=== PATIENT | male | born 1965 | race Caucasian/White ===

== ENCOUNTER 2016-10-10 05:33 | Day surgery (SDC) | payer OTHER ==
[2016-10-10] MEDS ORDERED: NS 1,000 ML ONE (06:59)
[2016-10-10] MEDS ORDERED: LR 1,000 ML ONE ×2 (07:13→10:27)
[2016-10-10] MEDS ORDERED: MYLICON DROPS (DOSE) MISC ONE (08:00)
--- NOTE | 2016-10-10 08:20 | HISTORY AND PHYSICAL ---
REASON FOR ADMISSION: This patient is admitted for a colonoscopy. HISTORY OF PRESENT ILLNESS: This is a 51-year-old gentleman who needed a screening colonoscopy. He never had a colonoscopy. He has no symptoms. No history of any blood in stool, black stool, or abdominal pain. PAST MEDICAL HISTORY: No history of hypertension or diabetes mellitus. The patient has hypercholesterolemia and osteoarthritis of both knees. PAST SURGICAL HISTORY: Tonsillectomy, kidney stone removal in 2010, and appendectomy. SOCIAL HISTORY: He has 2 children. Does not abuse alcohol or tobacco. He drinks occasionally. He is retired personnel. He is currently . FAMILY HISTORY: There is no significant family history of colon cancer or any other serious medical problems. PHYSICAL EXAMINATION: VITAL SIGNS: The pulse is 68 per minute, respiratory rate is 20, blood pressure is 130/90, height is 68 inches, weight is 203 pounds. GENERAL APPEARANCE: Unremarkable. SKIN: Warm and dry. Mucous membranes are moist. NECK: Supple. There is no thyromegaly. CARDIAC: Both heart sounds are heard. Rhythm is regular. No murmur. LUNGS: Clear to percussion and auscultation. ABDOMEN: Soft, nontender. No masses felt. Bowel sounds are heard. EXTREMITIES: Free of any edema. MEDICATION: Include Motrin IB 200 mg on a p.r.n. basis, cyclobenzaprine, hydrochlorothiazide 10 mg p.r.n. as needed for pain. IMPRESSION: Routine colorectal cancer screening. RECOMMENDATION: Colonoscopy. I have explained the procedure of colonoscopy with benefit and risks; in particular, risk of perforation, hemorrhage, and infection. Patient agreed for it. We will proceed with it. I also explained to the patient about conscious sedation. He agreed for conscious sedation.
[2016-10-10 08:56] VITALS: BP 141/89
[2016-10-10] MEDS ORDERED: VERSED ONE (10:10)
[2016-10-10] MEDS ORDERED: DIPRIVAN 1% ONE (10:10)
[2016-10-10] MEDS ORDERED: XYLOCAINE-MPF 2% ONE (10:27)
[2016-10-10] MEDS ORDERED: EXTENSION SET 32 IN 4522 ONE (10:27)
[2016-10-10] MEDS ORDERED: ANESTHESIA PB SET 88 IN 5742 ONE (10:27)
--- NOTE | 2016-10-10 11:22 | OPERATIVE NOTE ---
PROCEDURE DATE : 10/10/2016 PROCEDURE: Colonoscopy. HISTORY AND REASON FOR THE PROCEDURE: This patient is 51 years old and he needs a screening colonoscopy. MEDICATIONS/ANESTHESIA: Medications were all given by the anesthesiologist. The patient was monitored before and after the procedure by them, and his condition remained stable. PHOTOGRAPHS TAKEN: From the cecum. SPECIMEN: None. DESCRIPTION OF PROCEDURE: The patient was kept in the left lateral decubitus position. Rectal examination was performed, the anal canal lubricated. The Olympus videoscope was introduced into the rectum, advanced to the cecum. The patient tolerated the procedure well, and bowel preparation was good. FINDINGS: Rectum appeared normal without any lesions. The sigmoid was normal. The descending colon was normal. The splenic flexure was normal. The transverse colon was normal. Hepatic flexure was normal. Ascending colon was normal. The cecum was identified by the presence of the ileocecal valve. There were no lesions. Air was taken out from the patient's colon, and the scope was removed from the patient. IMPRESSION: Normal colonoscopy. RECOMMENDATIONS: Colonoscopy in 10 years.
== END 2016-10-10 09:20 | disposition home or self-care (01) ==
LOC: ENDO 05:33
PROVIDERS: ATTEND Internal Medicine Gastroenterology
DX: Z12.11 Encounter for screening for malignant neoplasm of colon (principal); E78.00 Pure hypercholesterolemia, unspecified; M19.90 Unspecified osteoarthritis, unspecified site
CPT/HCPCS: J2250; J7030; J7120